=== PATIENT | female | born 1995 | race African-American/Black ===

== ENCOUNTER 2018-11-08 10:09 | Emergency (ER) | payer OTHER ==
[2018-11-08 10:23] VITALS: BP 139/84
[2018-11-08] MEDS ORDERED: IV NORMAL SALINE 1,000ML 1,000 ML IV ONE (10:30)
--- NOTE | 2018-11-08 10:46 | PHYS DOC ---
Past History Past Medical History: No Pertinent History Past Surgical History: No Surgical History Alcohol Use: None Drug Use: None Adult General Chief Complaint Chief Complaint: VAGINAL BLEEDING HPI HPI 23-year-old female , 6 weeks presents with vaginal bleeding. The bleeding started this morning. She is also had some cramping and a couple blood clots. The patient has had 1 spontaneous in the past at about the same timeframe. She has one living child. She has not had a quantitative hCG done. She only has a positive home test. She has not seen an energy conservation technician yet. She has not had any ultrasound done for this . Her pain at this time is mild. She denies fever or chills. Review of Systems Review of Systems Constitutional: Denies fever or chills [] Eyes: Denies change in visual acuity, redness, or eye pain [] HENT: Denies nasal congestion or sore throat [] Respiratory: Denies cough or shortness of breath [] Cardiovascular: No additional information not addressed in HPI [] GI: Denies abdominal pain, nausea, vomiting, bloody stools or diarrhea [] : Denies dysuria or hematuria. Vaginal bleeding [] Musculoskeletal: Denies back pain or joint pain [] Integument: Denies rash or skin lesions [] Neurologic: Denies headache, focal weakness or sensory changes [] Endocrine: Denies polyuria or polydipsia [] All other systems were reviewed and found to be within normal limits, except as documented in this note. Current Medications Current Medications Current Medications Medications (Trade) Dose Ordered Sig/Narinder Start Time Stop Time Status Last Admin Dose Admin Sodium Chloride 1,000 ml @ 1,000 mls/hr 1X ONCE 11/08/18 10:30 11/08/18 11:29 Allergies Allergies Allergies Coded Allergies Type Severity Reaction Last Updated Verified No Known Drug Allergies 11/08/18 No Physical Exam Physical Exam Constitutional: Well developed, well nourished, no acute distress, non-toxic appearance. [] HENT: Normocephalic, atraumatic, bilateral external ears normal, oropharynx moist, no oral exudates, nose normal. [] Eyes: PERRLA, EOMI, conjunctiva normal, no discharge. [] Neck: Normal range of motion, no tenderness, supple, no stridor. [] Cardiovascular:Heart rate regular rhythm, no murmur [] Lungs & Thorax: Bilateral breath sounds clear to auscultation [] Abdomen: Bowel sounds normal, soft, no tenderness, no masses, no pulsatile masses. [] Skin: Warm, dry, no erythema, no rash. [] Back: No tenderness, no CVA tenderness. [] Extremities: No tenderness, no cyanosis, no clubbing, ROM intact, no edema. [] Neurologic: Alert and oriented X 3, normal motor function, normal sensory function, no focal deficits noted. [] Psychologic: Affect normal, judgement normal, mood normal. : Vaginal bleeding [] Current Patient Data Vital Signs Vital Signs Date Time Temp Pulse Resp B/P (MAP) Pulse Ox O2 Delivery O2 Flow Rate FiO2 11/08/18 10:23 98.7 76 18 98 Room Air EKG EKG [] Radiology/Procedures Radiology/Procedures [] Impressions: Indication:6 weeks . Possible miscarriage. TECHNIQUE: Ultrasound OB less than 14 weeks. COMPARISON:None FINDINGS: Uterus is anteverted and measures 8.5 x 3.6 x 4.4 cm. Right ovary measures 2.1 x 1.2 x 2.4 cm and shows blood flow. Left ovary measures 2.2 x 1.1 x 2.0 cm and shows blood flow. Small amount of free fluid seen in the cul-de-sac. Intrauterine gestation sac is seen with mean sac diameter of 0.48 cm corresponding to gestation age of 5 weeks 2 days. Yolk sac is seen measuring 0.11 cm. pole is not seen. Cervix is closed. Questionable subchorionic bleed measuring 5 mm. IMPRESSION: 1. Single intrauterine line gestation sac corresponding to gestation age of 5 weeks 2 days without identification of pole. Findings may be secondary to early although failed first trimester is not ruled out. Clinically correlate with beta-hCG. Follow-up ultrasound recommended to document pole. 2. Questionable small subchorionic bleed (5 mm). Attention on follow-up. Electronically signed by: Sylvester Munoz DO (11/08/2018 12:14 PM) [facility] DICTATED AND SIGNED BY: SYLVESTER MUNOZ DO DATE: 11/08/18 0883 CC: RAMON BRAND DO; APURVA DALE PA-C ~ Course & Med Decision Making Course & Med Decision Making Pertinent Labs and Imaging studies reviewed. (See chart for details) The patient shows an intrauterine sac, but no definitive heartbeat. This could be due to early or spontaneous miscarriage. Her hCG is 320. She will follow-up with her physician [facility] [employer] [facility] for repeat hCG in 2 days. She is stable for discharge at this time. [] Dragon Disclaimer Dragon Disclaimer This electronic medical record was generated, in whole or in part, using a voice recognition dictation system. Departure Departure: Impression: Primary Impression: Threatened in first trimester Disposition: 01 HOME, SELF-CARE Condition: STABLE Referrals: APURVA DALE PA-C (PCP) Patient Instructions: Threatened Miscarriage, [id number] RAMON BRAND DO Nov 08, 2018 10:46
--- NOTE | 2018-11-08 12:17 | RAD ---
Indication:6 weeks . Possible miscarriage. TECHNIQUE: Ultrasound OB less than 14 weeks. COMPARISON:None FINDINGS: Uterus is anteverted and measures 8.5 x 3.6 x 4.4 cm. Right ovary measures 2.1 x 1.2 x 2.4 cm and shows blood flow. Left ovary measures 2.2 x 1.1 x 2.0 cm and shows blood flow. Small amount of free fluid seen in the cul-de-sac. Intrauterine gestation sac is seen with mean sac diameter of 0.48 cm corresponding to gestation age of 5 weeks 2 days. Yolk sac is seen measuring 0.11 cm. pole is not seen. Cervix is closed. Questionable subchorionic bleed measuring 5 mm. IMPRESSION: 1. Single intrauterine line gestation sac corresponding to gestation age of 5 weeks 2 days without identification of pole. Findings may be secondary to early although failed first trimester is not ruled out. Clinically correlate with beta-hCG. Follow-up ultrasound recommended to document pole. 2. Questionable small subchorionic bleed (5 mm). Attention on follow-up. Electronically signed by: Sylvester Alcocer DO (11/08/2018 12:14 PM) [facility]
[2018-11-08 12:47] LABS: BACTERIA,URINE MOD /HPF (0-FEW); BILIRUBIN,URINE NEG (NEG); CLARITY,URINE HAZY; COLOR,URINE YELLOW; GLUCOSE,URINE NEG (NEG); NITRITE,URINE NEG (NEG); RBC,URINE 20-40 /HPF (0-2); UROBILINOGEN,URINE 0.2 mg/dL (0.2 mg/dL)
[2018-11-08 12:48] LABS: SQUAMOUS EPITHELIAL CELL,UR MOD /LPF
== END 2018-11-08 12:38 | disposition home or self-care (01) ==
LOC: ER 10:09
DX: O20.0 Threatened abortion (principal); Z3A.01 Less than 8 weeks gestation of pregnancy
CPT/HCPCS: 36415; 76801; 76817; 81001; 84702; 87086; 99285-25; J7030

== ENCOUNTER 2018-11-21 07:59 | Emergency (ER) | payer OTHER ==
[~2018-11-21] VITALS: Ht 160 cm; Wt 78.5 kg
--- NOTE | 2018-11-21 08:27 | EKG ---
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
[2018-11-21] MEDS ORDERED: IV NORMAL SALINE 1,000ML 1,000 ML IV ONE (08:30)
--- NOTE | 2018-11-21 08:32 | PHYS DOC ---
Past History Past Medical History: No Pertinent History Past Surgical History: No Surgical History Alcohol Use: None Drug Use: None Adult General Chief Complaint Chief Complaint: CHEST PAIN HPI HPI 23-year-old female presents with chest pain. She states that it started yesterday evening. At that time it was a 7 out of 10. He describes it as a tightness feeling. It does not radiate. She was at work sitting at her desk when it started. It has been intermittent since that time. It does seem to be worse with exertion, but does not prevent her from doing things. On arrival to the emergency room, it is a 4 out of 10. She does not feel short of breath. She does not have diaphoresis. It does feel more tight with deep breathing. No history of asthma, GERD, cardiac issues, DVT or PE. She did have a miscarriage about 2 weeks ago. She denies smoking or drug use. No fever or chills. Review of Systems Review of Systems Constitutional: Denies fever or chills [] Eyes: Denies change in visual acuity, redness, or eye pain [] HENT: Denies nasal congestion or sore throat [] Respiratory: Denies cough or shortness of breath [] Cardiovascular: No additional information not addressed in HPI [] GI: Denies abdominal pain, nausea, vomiting, bloody stools or diarrhea [] : Denies dysuria or hematuria [] Musculoskeletal: Denies back pain or joint pain [] Integument: Denies rash or skin lesions [] Neurologic: Denies headache, focal weakness or sensory changes [] Endocrine: Denies polyuria or polydipsia [] All other systems were reviewed and found to be within normal limits, except as documented in this note. Current Medications Current Medications Current Medications Medications (Trade) Dose Ordered Sig/[facility] Start Time Stop Time Status Last Admin Dose Admin Aspirin (Children'S Aspirin) 324 mg 1X ONCE 11/21/18 08:30 11/21/18 08:31 UNV Sodium Chloride 1,000 ml @ 1,000 mls/hr 1X ONCE 11/21/18 08:30 11/21/18 09:29 UNV Allergies Allergies Allergies Coded Allergies Type Severity Reaction Last Updated Verified No Known Drug Allergies 11/21/18 No Physical Exam Physical Exam Constitutional: Well developed, well nourished, no acute distress, non-toxic appearance. [] HENT: Normocephalic, atraumatic, bilateral external ears normal, oropharynx moist, no oral exudates, nose normal. [] Eyes: PERRLA, EOMI, conjunctiva normal, no discharge. [] Neck: Normal range of motion, no tenderness, supple, no stridor. [] Cardiovascular:Heart rate regular rhythm, no murmur [] Lungs & Thorax: Bilateral breath sounds clear to auscultation [] Abdomen: Bowel sounds normal, soft, no tenderness, no masses, no pulsatile masses. [] Skin: Warm, dry, no erythema, no rash. [] Back: No tenderness, no CVA tenderness. [] Extremities: No tenderness, no cyanosis, no clubbing, ROM intact, no edema. [] Neurologic: Alert and oriented X 3, normal motor function, normal sensory function, no focal deficits noted. [] Psychologic: Affect normal, judgement normal, mood normal. [] Current Patient Data Vital Signs Vital Signs Date Time Temp Pulse Resp B/P (MAP) Pulse Ox O2 Delivery O2 Flow Rate FiO2 11/21/18 08:14 98.3 85 16 97 Room Air EKG EKG Sinus rhythm, rate 73, normal axis, inverted T waves leads 3 and aVF.[] Radiology/Procedures Radiology/Procedures [] Impressions: Chest, PA and Lateral: Technique: PA and lateral views of the chest were obtained. History: Chest pain. Comparison: None. Findings: The heart and pulmonary vasculature appear within normal limits. The lungs are clear. The pleural margins are clear. Impression: No acute chest process is seen. Electronically signed by: Mark Berumen MD (11/21/2018 8:49 AM) [id number] DICTATED AND SIGNED BY: MARK BERUMEN MD DATE: 11/21/18 0849 CC: RAMON BRAND DO; APURVA DALE PA-C ~ Course & Med Decision Making Course & Med Decision Making Pertinent Labs and Imaging studies reviewed. (See chart for details) The patient's EKG has nonspecific T-wave inversion 3 and aVF. No other significant findings. Her chest x-ray is unremarkable. Her HEART score is a 2. Her heart rates in the low 70s, normal blood pressure, 100% O2 on room air. The patient's pain could be musculoskeletal. It does not appear to have a cardiopulmonary source at this time. She would follow up with her primary physician if she has continued discomfort. She will return to the emergency room if any worsening or new symptoms develop. She is stable for discharge at this time. [] Dragon Disclaimer Dragon Disclaimer This electronic medical record was generated, in whole or in part, using a voice recognition dictation system. The HEART Score for CP Pts HEART Score for Chest Pain: HEART Score for Chest Pain Response (Comments) Value History Moderately Suspicious 1 ECG Nonspecific Repolarizatio 1 Age < 45 0 Risk Factors No Risk Factors 0 Troponin < Normal Limit 0 Total 2 Risk Factors: Risk Factors: DM, Current or recent (<one month) smoker, HTN, HLP, family history of CAD, obesity. Risk Scores: Score 0 - 3: 2.5% MACE over next 6 weeks - Discharge Home Score 4 - 6: 20.3% MACE over next 6 weeks - Admit for Clinical Observation Score 7 - 10: 72.7% MACE over next 6 weeks - Early Invasive Strategies Departure Departure: Impression: Primary Impression: Chest pain Disposition: 01 HOME, SELF-CARE Condition: STABLE Referrals: APURVA DALE PA-C (PCP) Patient Instructions: Chest Pain (Nonspecific), [id number] Problem Qualifiers Primary Impression: Chest pain Chest pain type: unspecified Qualified Codes: R07.9 - Chest pain, unspecified RAMON BRAND DO Nov 21, 2018 08:32
[2018-11-21 08:47] LABS: BASO % 1 % (0-3); EOS # 0.1 x10^3/uL (0.0-0.7); EOS % 2 % (0-3); HEMATOCRIT 39.9 % (36.0-47.0); HEMOGLOBIN 13.2 g/dL (12.0-15.5); LYMPH % 45 % (24-48); MEAN CORPUSCULAR HEMOGLOBIN 30 pg (25-35); MEAN CORPUSCULAR HGB CONC 33 g/dL (31-37); MEAN CORPUSCULAR VOLUME 91 fL (79-100); MONO # 0.6 x10^3/uL (0.0-1.1); MONO % 13 % (0-9); NEUT # 1.8 x10^3uL (1.8-7.7); NEUT % 39 % (31-73); PLATELET COUNT 294 x10^3/uL (140-400); RED BLOOD COUNT 4.39 x10^6/uL (3.50-5.40); RED CELL DISTRIBUTION WIDTH 13.7 % (11.5-14.5); WHITE BLOOD COUNT 4.5 x10^3/uL (4.0-11.0)
--- NOTE | 2018-11-21 08:51 | RAD ---
Chest, PA and Lateral: Technique: PA and lateral views of the chest were obtained. History: Chest pain. Comparison: None. Findings: The heart and pulmonary vasculature appear within normal limits. The lungs are clear. The pleural margins are clear. Impression: No acute chest process is seen. Electronically signed by: Mark Berumen MD (11/21/2018 8:49 AM) [id number]
[2018-11-21] MEDS ORDERED: ASPIRIN 81 MG TAB.CHEW PO ONE (09:00)
[2018-11-21 09:02] LABS: ALBUMIN 3.8 g/dL (3.4-5.0); ALBUMIN/GLOBULIN RATIO 0.8 (1.0-1.7); CALCIUM 9.7 mg/dL (8.5-10.1); GFR 82.4; TOTAL BILIRUBIN 0.4 mg/dL (0.2-1.0); TOTAL PROTEIN 8.4 g/dL (6.4-8.2)
[2018-11-21 09:19] VITALS: BP 125/71
== END 2018-11-21 09:34 | disposition home or self-care (01) ==
LOC: ER 07:59
DX: R07.89 Other chest pain (principal)
CPT/HCPCS: 36415; 71046; 80053; 84484; 85025; 93005; 99285-25; J7030

== ENCOUNTER 2020-04-04 14:09 | Emergency (ER) | payer OTHER ==
[~2020-04-04] VITALS: Ht 160 cm; Wt 84.4 kg
[2020-04-04] MEDS ORDERED: CYCL-331 PO (15:21)
[2020-04-04] MEDS ORDERED: NAPR-514 PO (15:21)
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
[2020-04-04 15:50] VITALS: BP 104/61
== END 2020-04-04 15:50 | disposition home or self-care (01) ==
LOC: ER 14:09
DX: S16.1XXA Strain of muscle, fascia and tendon at neck level, initial encounter (principal); S39.012A Strain of muscle, fascia and tendon of lower back, initial encounter; R51.9 Headache, unspecified; V43.52XA Car driver injured in collision with other type car in traffic accident, initial encounter; Y93.I9 Activity, other involving external motion; Y92.89 Other specified places as the place of occurrence of the external cause; Y99.8 Other external cause status
CPT/HCPCS: 99283